=== PATIENT | female | born 1940 | race Two or more races ===

== ENCOUNTER 2017-08-18 13:12 | Emergency (ER) | payer SELFPAY ==
[2017-08-18 15:20] VITALS: BP 140/67
== END 2017-08-18 16:12 | disposition home or self-care (01) ==
LOC: ER 13:12
DX: S29.011A Strain of muscle and tendon of front wall of thorax, initial encounter (principal); R91.1 Solitary pulmonary nodule; J45.909 Unspecified asthma, uncomplicated; E11.9 Type 2 diabetes mellitus without complications; I10 Essential (primary) hypertension; V43.62XA Car passenger injured in collision with other type car in traffic accident, initial encounter; Y93.89 Activity, other specified; Y92.410 Unspecified street and highway as the place of occurrence of the external cause; Y99.8 Other external cause status
CPT/HCPCS: 71101